=== PATIENT | female | born 1985 | race Caucasian/White ===

== ENCOUNTER 2016-11-28 20:23 | Emergency (ER) | payer MEDICAID, OTHER ==
[~2016-11-28] VITALS: Ht 167.6 cm; Wt 108.5 kg
[~2016-11-28 20:23] MED LIST: ETON1VAG TD
[2016-11-28 21:42] LABS: HEMOGLOBIN 11.9 g/dL (11.7-16.4)
[2016-11-28 21:54] LABS: ASPARTATE AMINO TRANSFERASE 10 U/L (15-37); BLOOD UREA NITROGEN 8 mg/dL (7-18)
[2016-11-28 23:59] VITALS: BP 109/65
== END 2016-11-29 00:09 | disposition home or self-care (01) ==
LOC: ED 23:13
DX: O26.892 Other specified pregnancy related conditions, second trimester (principal); Z3A.23 23 weeks gestation of pregnancy; R51 Headache; R20.9 Unspecified disturbances of skin sensation
CPT/HCPCS: 36415; 70544; 70551; 80053; 85025; 93005; 99285

== ENCOUNTER 2017-02-05 09:58 | Observation (INO) | payer OTHER ==
[2017-02-05] MEDS ORDERED: TERBUTALINE 1 MG/ML, 1ML ONE ×2 (10:24→12:14)
[2017-02-05] MEDS ORDERED: BETAMETHASONE 6 MG/ML, 5ML IM ONE ×2 (10:24→10:30)
[2017-02-05] MEDS ORDERED: TERBUTALINE 1 MG/ML, 1ML IV ONE (10:30)
[2017-02-05 10:42] VITALS: BP 115/75
[2017-02-05] MEDS ORDERED: TERBUTALINE 1 MG/ML, 1ML SQ ONE (13:00)
[2017-02-05] MEDS ORDERED: ACETAMINOPHEN 325 MG TABLET ONE (13:10)
[2017-02-05] MEDS ORDERED: LACTATED RINGERS 1,000 ML IV SCH (13:30)
[2017-02-05] MEDS ORDERED: LACTATED RINGERS 1,000 ML IVBOLUS ONE (13:30)
[2017-02-05] MEDS ORDERED: ACETAMINOPHEN 325 MG TABLET PO PRN (13:30)
[2017-02-05] MEDS ORDERED: CEFAZOLIN PMX 1GM/50ML 50 ML ONE (14:21)
[2017-02-05] MEDS ORDERED: CEFAZOLIN PMX 1GM/50ML 50 ML IV ONE (14:30)
== END 2017-02-05 17:25 | disposition home or self-care (01) ==
LOC: LDOP 09:58 → LDIP 11:12
PROVIDERS: ADMIT Obstetrics & Gynecology; ATTEND Obstetrics & Gynecology
DX: O47.03 False labor before 37 completed weeks of gestation, third trimester (principal); O99.89 Other specified diseases and conditions complicating pregnancy, childbirth and the puerperium; M06.9 Rheumatoid arthritis, unspecified; Z3A.33 33 weeks gestation of pregnancy
CPT/HCPCS: 59025; 76815; 81001; 87086; 96365; 96372; 96375; G0378; J0690; J0702; J3105; J7120; 96361; 96374

== ENCOUNTER 2017-02-06 10:27 | Outpatient (CLI) | payer OTHER ==
[~2017-02-06] VITALS: Ht 165.1 cm; Wt 104.5 kg
[2017-02-06] MEDS ORDERED: PLEASE ENTER HEIGHT AND WEIGHT MC SCH (11:00)
[2017-02-06] MEDS ORDERED: BETAMETHASONE 6 MG/ML, 5ML IM ONE (11:00)
== END 2017-02-06 11:35 | disposition home or self-care (01) ==
LOC: LDOP 10:27
PROVIDERS: ATTEND Obstetrics & Gynecology
DX: O26.893 Other specified pregnancy related conditions, third trimester (principal); O60.03 Preterm labor without delivery, third trimester; R10.9 Unspecified abdominal pain; Z3A.33 33 weeks gestation of pregnancy
CPT/HCPCS: 59025; 96372; 99201; J0702; G0463

== ENCOUNTER 2017-02-19 20:15 | Observation (INO) | payer OTHER ==
[~2017-02-19] VITALS: Ht 167.6 cm; Wt 116.0 kg
[2017-02-19 20:37] VITALS: BP 121/78
[2017-02-19] MEDS ORDERED: TERBUTALINE 1 MG/ML, 1ML ONE (22:50)
[2017-02-19] MEDS ORDERED: TERBUTALINE 1 MG/ML, 1ML SQ ONE (23:00)
== END 2017-02-20 00:30 | disposition home or self-care (01) ==
LOC: LDOP 20:15 → LDIP 22:00
PROVIDERS: ADMIT Obstetrics & Gynecology; ATTEND Obstetrics & Gynecology
DX: O26.899 Other specified pregnancy related conditions, unspecified trimester (principal); R10.9 Unspecified abdominal pain; Z3A.00 Weeks of gestation of pregnancy not specified
CPT/HCPCS: 36415; 59025; 81001; 82731; 87086; 96372; G0378; J3105

== ENCOUNTER 2017-03-13 12:03 | Inpatient (IN) | payer OTHER ==
[~2017-03-13] VITALS: Ht 165.1 cm; Wt 119.5 kg
[2017-03-13] MEDS ORDERED: OXYTOCIN 30U/ 0.9% NaCL 500ML 500 ML IV ONE (12:44)
[2017-03-13] MEDS ORDERED: TERBUTALINE 1 MG/ML, 1ML IVPush PRN (13:00)
[2017-03-13] MEDS ORDERED: FENTANYL PF 100 MCG/2ML IVPush PRN (13:00)
[2017-03-13] MEDS ORDERED: FENTANYL PF 100 MCG/2ML IV PRN (13:00)
[2017-03-13] MEDS: PLEASE ENTER HEIGHT AND WEIGHT MC SCH ×2 (13:00→21:00)
[2017-03-13] MEDS ORDERED: OXYTOCIN 30U/ 0.9% NaCL 500ML 500 ML IV PRN (13:00)
[2017-03-13] MEDS: LACTATED RINGERS 1,000 ML IV SCH ×2 (13:30→20:16)
[2017-03-13] MEDS ORDERED: OXYTOCIN 30U/ 0.9% NaCL 500ML 500 ML ONE ×2 (13:36→17:10)
[2017-03-13] MEDS ORDERED: LIDOCAINE 1%, 20ML ONE (17:09)
[2017-03-13] MEDS ORDERED: MISOPROSTOL 200 MCG TABLET ONE (17:10)
[2017-03-13] MEDS ORDERED: NEWBORN KIT ONE (17:10)
[2017-03-13] MEDS ORDERED: ACETAMINOPHEN 325 MG TABLET ONE (19:20)
[2017-03-13] MEDS ORDERED: ACETAMINOPHEN 325 MG TABLET PO PRN (20:30)
[2017-03-13] MEDS ORDERED: FENTANYL PF 100 MCG/2ML ONE (22:18)
[2017-03-13] MEDS ORDERED: LIDOCAINE/PF 1.5%-EPI 1:200K, 30ML ONE (23:42)
[2017-03-13] MEDS ORDERED: FENTANYL/BUPIV./NS/PF 250 ML EPIDCONT ONE (23:42)
[2017-03-14] MEDS ORDERED: LACTATED RINGERS 1,000 ML IV SCH ×3 (00:07→04:48)
[2017-03-14] MEDS ORDERED: FENTANYL/BUPIV./NS/PF 250 ML EPIDCONT SCH (00:07)
[2017-03-14] MEDS ORDERED: LACTATED RINGERS 1,000 ML IVBOLUS PRN (00:30)
[2017-03-14] MEDS ORDERED: FENTANYL PF 100 MCG/2ML ONE (00:45)
[2017-03-14] MEDS ORDERED: TERBUTALINE 1 MG/ML, 1ML ONE (02:13)
[2017-03-14] MEDS ORDERED: METOCLOPRAMIDE 5 MG/ML, 2ML ONE (04:02)
[2017-03-14] MEDS ORDERED: SODIUM CITRATE/CITRIC ACID 30 ML UDC ONE (04:02)
[2017-03-14] MEDS ORDERED: OXYTOCIN 30U/ 0.9% NaCL 500ML 500 ML IV SCH (04:02)
[2017-03-14] MEDS ORDERED: LIDOCAINE/MPF 2%-EPI 1:200K, 20 ML ONE (04:04)
[2017-03-14] MEDS ORDERED: ONDANSETRON 2MG/ML, 2ML ONE (04:04)
[2017-03-14] MEDS ORDERED: CEFAZOLIN 1,000 MG ONE (04:04)
[2017-03-14] MEDS ORDERED: HYDROmorphone 2 MG/ML, 1ML ONE (04:19)
[2017-03-14] MEDS ORDERED: MEPERIDINE/PF 50 MG/ML ONE (04:24)
[2017-03-14] MEDS ORDERED: LACTATED RINGERS 1,000 ML IVBOLUS ONE (04:30)
[2017-03-14] MEDS ORDERED: METOCLOPRAMIDE 5 MG/ML, 2ML IV ONE (04:30)
[2017-03-14] MEDS ORDERED: SODIUM CITRATE/CITRIC ACID 30 ML UDC PO ONE (04:30)
[2017-03-14] MEDS: LACTATED RINGERS 1,000 ML IV SCH ×3 (04:44→14:48)
[2017-03-14] MEDS: OXYTOCIN 30U/ 0.9% NaCL 500ML 500 ML IV SCH ×2 (04:48→14:48)
[2017-03-14] MEDS: PLEASE ENTER HEIGHT AND WEIGHT MC SCH (05:00)
[2017-03-14] MEDS ORDERED: morphine SULFATE 10 MG/ML, 1ML IVPush PRN (05:00)
[2017-03-14] MEDS ORDERED: MISOPROSTOL 200 MCG TABLET PR PRN (05:00)
[2017-03-14] MEDS ORDERED: MEPERIDINE/PF 50 MG/ML IM PRN (05:00)
[2017-03-14] MEDS ORDERED: MEPERIDINE/PF 25MG/0.5ML IM PRN (05:00)
[2017-03-14] MEDS ORDERED: ONDANSETRON 2MG/ML, 2ML IV PRN (05:00)
[2017-03-14 06:15] VITALS: BP 117/76
[2017-03-14 08:00] VITALS: BP 112/70
[2017-03-14] MEDS: DOCUSATE 100 MG CAPSULE PO PRN (08:02)
[2017-03-14] MEDS: KETOROLAC 30 MG/1 ML IV SCH ×3 (08:02→20:37)
[2017-03-14] MEDS: PRENATAL VIT/IRON/FA 1 EACH TABLET PO SCH (09:00)
[2017-03-14 12:45] VITALS: BP 111/73
[2017-03-14 16:00] VITALS: BP 116/72
[2017-03-14] MEDS: OXYcodone/APAP 5/325MG TABLET PO PRN ×2 (17:20→21:42)
[2017-03-14 19:45] VITALS: BP 109/67
[2017-03-14] MEDS ORDERED: DIPH,PERTUSS(ACELL),TET VAC/PF NC IM-VACC ONE (22:20)
[2017-03-15 00:25] VITALS: BP 110/69
[2017-03-15] MEDS: KETOROLAC 30 MG/1 ML IV SCH ×4 (02:41→20:00)
[2017-03-15] MEDS: OXYcodone/APAP 5/325MG TABLET PO PRN ×4 (04:32→20:36)
[2017-03-15 07:45] VITALS: BP 103/69
[2017-03-15] MEDS: DOCUSATE 100 MG CAPSULE PO PRN ×2 (08:39→20:36)
[2017-03-15] MEDS: PRENATAL VIT/IRON/FA 1 EACH TABLET PO SCH (08:39)
[2017-03-15 19:15] VITALS: BP 111/71
[2017-03-15] MEDS: IBUPROFEN 600 MG TABLET PO PRN (20:36)
[2017-03-16] MEDS: IBUPROFEN 600 MG TABLET PO PRN ×2 (03:44→10:19)
[2017-03-16] MEDS: OXYcodone/APAP 5/325MG TABLET PO PRN ×2 (03:45→09:04)
[2017-03-16 07:35] VITALS: BP 124/71
[2017-03-16] MEDS: PRENATAL VIT/IRON/FA 1 EACH TABLET PO SCH (09:03)
[2017-03-16] MEDS: DOCUSATE 100 MG CAPSULE PO PRN (09:04)
[2017-03-16] MEDS ORDERED: IBUP-1222 PO (11:06)
[2017-03-16] MEDS ORDERED: OXYC-302 PO (11:07)
[2017-03-16] MEDS ORDERED: DOCU-30 PO (11:07)
[2017-03-16] MEDS ORDERED: FERR324T8 PO (13:10)
== END 2017-03-16 14:59 | disposition home or self-care (01) | DRG 765 ==
LOC: LDOP 12:03 → LDIP 12:59 → 2NW 03-14 05:59
PROVIDERS: ADMIT Obstetrics & Gynecology; ATTEND Obstetrics & Gynecology
PROC: 10D00Z1 Extraction of Products of Conception, Low, Open Approach (ICD-10-PCS; principal; 2017-03-14)
DX: O76 Abnormality in fetal heart rate and rhythm complicating labor and delivery (principal); D62 Acute posthemorrhagic anemia; O40.3XX0 Polyhydramnios, third trimester, not applicable or unspecified; O90.81 Anemia of the puerperium; O36.8130 Decreased fetal movements, third trimester, not applicable or unspecified; Z3A.38 38 weeks gestation of pregnancy; Z37.0 Single live birth; Z23 Encounter for immunization
CPT/HCPCS: 36415; 82803; 85025; 86850; 86900; 90715; J0690; J1170; J1885; J2175; J2405; J3010; J2270; J2590; J2765; J3105; J7120

== ENCOUNTER 2017-03-20 09:26 | Emergency (ER) | payer OTHER ==
[~2017-03-20] VITALS: Ht 167.6 cm; Wt 115.6 kg
[~2017-03-20 09:26] MED LIST changes: +DOCU-30 PO; +FERR324T8 PO; +IBUP-1222 PO; +OXYC-302 PO
[2017-03-20] MEDS ORDERED: SODIUM CHLORIDE FLUSH 10ML SYR IVF ONE (10:00)
[2017-03-20] MEDS ORDERED: ONDANSETRON 2MG/ML, 2ML IVPush ONE (10:00)
[2017-03-20] MEDS ORDERED: SODIUM CHLORIDE 0.9% 1,000ML IVBOLUS ONE (10:00)
[2017-03-20] MEDS ORDERED: HYDROmorphone 1 MG/ML, 1ML IVPush PRN (10:00)
[2017-03-20] MEDS ORDERED: HYDROmorphone 1 MG/ML, 1ML ONE (10:02)
[2017-03-20] MEDS ORDERED: ONDANSETRON 2MG/ML, 2ML ONE (10:02)
[2017-03-20 10:43] LABS: BLOOD UREA NITROGEN 9 mg/dL (7-18)
[2017-03-20 11:28] LABS: PATH.CAST-FLAG NOT PRESENT; SPERM-FLAG NOT PRESENT; SRC-FLAG NOT PRESENT; XTAL-FLAG NOT PRESENT; YLC-FLAG NOT PRESENT
[2017-03-20] MEDS ORDERED: OMNIPAQUE 350 MG/ML, 100ML BOTTLE ONE (11:38)
[2017-03-20 12:26] VITALS: BP 133/84
== END 2017-03-20 12:42 | disposition home or self-care (01) ==
LOC: ED 12:36
DX: O72.1 Other immediate postpartum hemorrhage (principal); Z37.9 Outcome of delivery, unspecified
CPT/HCPCS: 36415; 74177; 80048; 81001; 82040; 85025; 87077; 87086; 87186; 96361; 96374; 96375; J1170; J2405; Q9967; J7030

== ENCOUNTER 2018-03-27 16:37 | Emergency (ER) | payer MEDICAID, OTHER ==
[~2018-03-27] VITALS: Ht 167.6 cm; Wt 110.4 kg
[~2018-03-27 16:37] MED LIST changes: +DOCU-131 PO; -DOCU-30 PO
[2018-03-27] MEDS ORDERED: SODIUM CHLORIDE FLUSH 10ML SYR IVF ONE (17:00)
[2018-03-27 17:46] LABS: BASOPHILS # (AUTO) 0.03 x10^3/uL (0-0.1); BASOPHILS % (AUTO) 0 % (0-1); EOSINOPHILS # (AUTO) 0.15 x10^3/uL (0-0.4); EOSINOPHILS % (AUTO) 2 % (1-7); LYMPHOCYTES # (AUTO) 2.82 x10^3/uL (1-3.4); LYMPHOCYTES % (AUTO) 35 % (22-44); MD NO; MEAN CORPUSCULAR HEMOGLOBIN 30.4 pg (27.0-34.8); MEAN CORPUSCULAR HGB CONC 34.5 g/dL (32.4-35.8); MEAN CORPUSCULAR VOLUME 88.1 fL (80-100); MEAN PLATELET VOLUME 9.3 fL (7.4-10.4); MONOCYTES # (AUTO) 0.67 x10^3/uL (0.2-0.8); MONOCYTES % (AUTO) 8 % (2-9); NEUTROPHILS # (AUTO) 4.42 x10^3/uL (1.8-6.8); NEUTROPHILS % (AUTO) 55 % (42-75); PLATELET COUNT 322 x10^3/uL (130-400); RED BLOOD COUNT 4.89 x10^6/uL (3.82-5.3); RED CELL DISTRIBUTION WIDTH 13.5 % (9.6-15.2)
[2018-03-27 17:53] LABS: ALANINE AMINOTRANSFERASE 18 U/L (12-78); ALBUMIN 3.8 g/dL (3.4-5.0); ANION GAP 7 mmol/L (5-15); CALCIUM 8.4 mg/dL (8.5-10.1); CHLORIDE 111 mmol/L (98-107); CREATININE 0.67 mg/dL (0.55-1.02)
[2018-03-27 17:57] LABS: ALKALINE PHOSPHATASE 88 U/L (45-117); BILIRUBIN,TOTAL 0.9 mg/dL (0.2-1.0)
[2018-03-27] MEDS ORDERED: ONDANSETRON 2MG/ML, 2ML IVPush ONE (19:00)
[2018-03-27] MEDS ORDERED: SODIUM CHLORIDE 0.9% 1,000ML IVBOLUS ONE (19:00)
[2018-03-27] MEDS ORDERED: MORPHINE SULFATE 4 MG/ML, 1ML IVPush PRN (19:00)
[2018-03-27] MEDS ORDERED: OMNIPAQUE 350 MG/ML, 100ML BOTTLE ONE (19:00)
[2018-03-27 19:19] LABS: MICROSCOPIC NOT IND
[2018-03-27] MEDS ORDERED: MORPHINE SULFATE 4 MG/ML, 1ML ONE (19:20)
[2018-03-27] MEDS ORDERED: ONDANSETRON 2MG/ML, 2ML ONE (19:20)
[2018-03-27 19:21] LABS: CULTURE INDICATED? NO
[2018-03-27 21:18] VITALS: BP 122/67
== END 2018-03-27 21:19 | disposition home or self-care (01) ==
LOC: ED 21:13
DX: R10.31 Right lower quadrant pain (principal); R11.2 Nausea with vomiting, unspecified; M06.9 Rheumatoid arthritis, unspecified
CPT/HCPCS: 36415; 74177; 80053; 81003; 84703; 85025; 96361; 96374; 96375; 99285; J2405; J7030; Q9967

== ENCOUNTER 2018-10-30 10:21 | Outpatient (CLI) | payer MEDICAID ==
[2018-10-30] MEDS ORDERED: SERT100T32 PO (11:00)
[2018-10-30] MEDS ORDERED: TRIA340. TD (11:00)
[2018-10-30] MEDS ORDERED: PRED10TA PO (11:00)
[2018-10-30] MEDS ORDERED: LYSI500T25 PO (11:00)
[2018-10-30] MEDS ORDERED: ABAT125S INJ (11:00)
[2018-10-30] MEDS ORDERED: TURM1POW PO (11:00)
== END 2018-10-30 23:59 | disposition home or self-care (01) ==
LOC: STAR 10:21
PROVIDERS: ATTEND Obstetrics & Gynecology
DX: Z02.9 Encounter for administrative examinations, unspecified (principal)

== ENCOUNTER 2018-11-05 09:53 | Day surgery (SDC) | payer MEDICAID ==
[~2018-11-05] VITALS: Ht 167.6 cm; Wt 109.4 kg
[~2018-11-05 09:53] MED LIST changes: +ABAT125S INJ; +LYSI500T25 PO; +PRED10TA PO; +SERT100T32 PO; +TRIA340. TD; +TURM1POW PO
[2018-11-05] MEDS ORDERED: LACTATED RINGERS 1,000 ML IV SCH (10:14)
[2018-11-05 10:17] VITALS: BP 116/79
[2018-11-05 10:33] LABS: HCG UR SG 1.026 (1.003-1.030)
[2018-11-05] MEDS ORDERED: EPINEPHRINE 1 MG/ML, 1ML ONE (10:49)
[2018-11-05] MEDS ORDERED: BUPIVACAINE/PF 0.25% ONE (10:49)
[2018-11-05] MEDS ORDERED: ACETAMINOPHEN 500 MG TABLET PO ONE (11:00)
[2018-11-05] MEDS ORDERED: DIAZEPAM 5 MG TABLET PO ONE (11:00)
[2018-11-05] MEDS ORDERED: GABAPENTIN 300 MG CAPSULE PO ONE (11:00)
[2018-11-05] MEDS ORDERED: MIDAZOLAM 1 MG/ML, 2ML ONE (11:28)
[2018-11-05] MEDS ORDERED: FENTANYL PF 100 MCG/2ML ONE (11:28)
[2018-11-05] MEDS ORDERED: PROMETHAZINE 25 MG/ML, 1ML IV PRN (12:30)
[2018-11-05] MEDS ORDERED: FENTANYL PF 100 MCG/2ML IV PRN (12:30)
[2018-11-05] MEDS ORDERED: KETOROLAC 30 MG/1 ML ONE (12:30)
[2018-11-05] MEDS ORDERED: MIDAZOLAM 1 MG/ML, 2ML IV PRN (12:30)
[2018-11-05] MEDS ORDERED: ONDANSETRON 2MG/ML, 2ML IV PRN (12:30)
[2018-11-05] MEDS ORDERED: SCOPOLAMINE PATCH, 1.5MG PATCH.TD72 TD PRN (12:30)
[2018-11-05] MEDS ORDERED: OXYcodone 5 MG/5 ML ORAL.SOL UDC PO PRN (12:30)
[2018-11-05] MEDS ORDERED: MEPERIDINE/PF 25MG/0.5ML IVPush PRN (12:30)
[2018-11-05] MEDS ORDERED: HYDROmorphone 2 MG/ML, 1ML IVPush PRN (12:30)
[2018-11-05] MEDS ORDERED: PROPOFOL 10 MG/ML, 20ML ONE (13:00)
[2018-11-05] MEDS ORDERED: ONDANSETRON 2MG/ML, 2ML ONE (13:00)
[2018-11-05] MEDS ORDERED: GLYCOPYRROLATE 0.2MG/1ML, 5ML ONE (13:00)
[2018-11-05] MEDS ORDERED: NEOSTIGMINE 1 MG/ML, 10ML ONE (13:00)
[2018-11-05] MEDS ORDERED: ROCURONIUM 10MG/ML,5ML ONE (13:00)
[2018-11-05] MEDS ORDERED: SUCCINYLCHOLINE 20 MG/ML, 10ML ONE (13:00)
[2018-11-05] MEDS ORDERED: DEXAMETHASONE 4 MG/ML, 1ML ONE (15:28)
== END 2018-11-05 16:15 | disposition home or self-care (01) ==
LOC: OUT 09:53
PROVIDERS: ATTEND Obstetrics & Gynecology
DX: Z30.2 Encounter for sterilization (principal); N73.6 Female pelvic peritoneal adhesions (postinfective)
CPT/HCPCS: 36415; 58301; 58670; 81025; 86850; 86900; 88302; J0171; J0330; J1100; J1885; J2250; J2405; J2704; J2710; J3010; J3490